=== PATIENT | female | born 1995 | race Caucasian/White ===

== ENCOUNTER 2017-11-29 14:29 | Emergency (ER) | payer OTHER ==
[~2017-11-29] VITALS: Ht 175.3 cm; Wt 70.3 kg
[~2017-11-29 14:29] MED LIST: IBUP800 PO; NEWMANS OINTMENT; OXYACE5T PO; Ultram50 MG PO
[2017-11-29] MEDS ORDERED: Ultram50 MG PO (15:46)
== END 2017-11-29 16:09 | disposition home or self-care (01) ==
LOC: ER 14:29
DX: S06.0X0A Concussion without loss of consciousness, initial encounter (principal); S00.03XA Contusion of scalp, initial encounter; S60.511A Abrasion of right hand, initial encounter; S00.81XA Abrasion of other part of head, initial encounter; V49.9XXA Car occupant (driver) (passenger) injured in unspecified traffic accident, initial encounter
CPT/HCPCS: 70450; 72170; 73030; 73130; 99284

== ENCOUNTER 2025-04-21 07:49 | Emergency (ER) | payer OTHER ==
[~2025-04-21] VITALS: Ht 175.3 cm; Wt 73.5 kg
[2025-04-21 08:15] VITALS: BP 132/97
[2025-04-21] MEDS ORDERED: AMOCLA875 PO (08:19)
== END 2025-04-21 08:24 | disposition home or self-care (01) ==
LOC: ER 07:49
DX: K04.7 Periapical abscess without sinus (principal); K02.9 Dental caries, unspecified; K01.1 Impacted teeth; Z87.891 Personal history of nicotine dependence
CPT/HCPCS: 99282

== ENCOUNTER 2025-06-10 21:10 | Emergency (ER) | payer OTHER ==
[~2025-06-10] VITALS: Ht 175.3 cm; Wt 72.6 kg
[~2025-06-10 21:10] MED LIST changes: +AMOCLA875 PO
[2025-06-10 21:12] VITALS: BP 113/91
[2025-06-10] MEDS ORDERED: Ketorolac Tromethamine 15mg Vial IM ONE (22:00)
[2025-06-10] MEDS ORDERED: Lidocaine 4% 1 Patch TOP ONE (22:00)
[2025-06-10] MEDS ORDERED: Dexamethasone Sod Phos 10 MG/ML 1ML VIAL PO ONE (23:00)
[2025-06-11] MEDS ORDERED: TIZA4 PO (00:49)
[2025-06-11] MEDS ORDERED: LIDO700A20 TOP (00:49)
== END 2025-06-11 01:08 | disposition home or self-care (01) ==
LOC: ER 21:10
DX: M54.42 Lumbago with sciatica, left side (principal); Z87.891 Personal history of nicotine dependence; Z79.899 Other long term (current) drug therapy
CPT/HCPCS: 72131; 96372; 99283-25; A9270; J1100; J1885